=== PATIENT | male | born 1965 | race Caucasian/White ===

== ENCOUNTER 2017-11-17 02:54 | Inpatient (IN) | payer OTHER ==
[2017-11-17] VITALS (7 sets, daily range): BP systolic 129–157; BP diastolic 78–103
[~2017-11-17] VITALS: Ht 177.8 cm; Wt 68.0 kg
[~2017-11-17 02:54] MED LIST: PROLASTIN C1000 MG IV; SPIRIVA INH
[2017-11-17] MEDS ORDERED: ANORO ELLIPTA1 EACH INH (03:12)
[2017-11-17 03:45] LABS: HEMATOCRIT 44.2 % (42.0-52.0); HEMOGLOBIN 14.9 gm/dL (14.0-18.0); MCH 30.7 pg (26.0-34.0); MCHC 33.7 g/dL (28.0-37.0); MCV 91.1 fL (80.0-100.0); MPV 6.8 fl. (7.2-11.1); NUCLEATED RBCS 0 /100WBC; PLATELET COUNT* 252 thou/uL (150-400); RBC 4.85 mil/uL (4.50-6.00); RDW-CV 13.4 % (10.5-14.5); WBC 10.5 thou/uL (4.0-11.0)
[2017-11-17 03:53] LABS: ANION GAP 13 mmol/L (7-16); BUN 8 mg/dL (7-18); CALCIUM 8.3 mg/dL (8.5-10.1); CHLORIDE 99 mmol/L (98-107); CO2 25 mmol/L (21-32); CREATININE 0.9 mg/dL (0.6-1.3); GLUCOSE 119 mg/dL (70-99); POTASSIUM 3.6 mmol/L (3.5-5.1); SODIUM 137 mmol/L (136-145)
[2017-11-17 03:54] LABS: APTT 29.7 Seconds (25.0-31.3); PROTIME 9.8 Seconds (9.20-11.50)
[2017-11-17 04:06] LABS: ALBUMIN 3.8 g/dL (3.4-5.0); ALKALINE PHOSPHATASE 77 U/L (46-116); SGOT 38 U/L (15-37); SGPT 41 U/L (30-65); TOTAL BILIRUBIN 0.2 mg/dL (<0.1-1.0); TOTAL PROTEIN 7.1 g/dL (6.4-8.2); TROPONIN-I LEVEL <0.06 ng/mL (<0.06)
[2017-11-17 04:48] LABS: INFLUENZA A ANTIGEN None Detected (None Detect)
[2017-11-17 05:32] LABS: ABSOLUTE LYMPHOCYTES 0.6 thou/uL (0.8-5.3); ABSOLUTE MONOCYTES 0.7 thou/uL (0.0-1.2); ABSOLUTE NEUTROPHILS 9.1 thou/uL (1.6-8.1); ANISOCYTOSIS 1+; PLATELET ESTIMATE ADEQUATE; POIKILOCYTOSIS 1+
--- NOTE | 2017-11-17 06:17 | NUR ---
PT ADMITTED WITH INFLUENZA B AND HYPOXIA. PT IS ON 2L PER NC WITH [place] SATS AT THIS TIME. UPPON ARRIVAL TO ED PT HAD SATS IN THE 80'S ON ROOM AIR. PT IS ON TELE MONITOR, SINUS TACH IN LOW 100'S. PT VITALS STABLE, AFEBRILE AT THIS TIME. PT REPORTS NOT FEELING GOOD WITH FEVER SINCE FRIDAY. PT GIVEN PO TYLENOL, 1 LITER BOLUS, SOLUMEDROL, TAMIFLU, ZITHRO, ROCEPHIN, AND BREATHING TX IN ED. SEPSIS SCREENING NEGATIVE AT THIS TIME. PT IS ALERT AND ORIENTED FROM HOME. PT IS UP AD JUS WITH STEADY GAIT. PT HAS IV FLUIDS INFUSING. SEE ASSESSMENT AND VITALS FOR OTHER DETAILS. CALL LIGHT WITHIN REACH, WILL CONTINUE PLAN OF CARE
--- NOTE | 2017-11-17 10:57 | EKG ---
[place] [address] ELECTROCARDIOGRAM REPORT Name: CASE,ZEESHAN GAR Room: [address] ADM IN .R.#: [id number] Admission: 11/17/17 Attend Phys: Cabrera Feldman MD Discharge: Date of : 67 Report #: [id number] THIS REPORT FOR: //name// 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: ZEHRA : [id number] Requested By: Yehuda Sharp Order Number: [id number] MD: Rangel Wiley Measurements Intervals [place] Rate: 111 P: 91 [place]: 153 QRS: 118 QRSD: 106 T: 68 QT: 313 QTc: 426 Interpretive Statements Sinus tachycardia Right atrial enlargement Right axis deviation Probable septal infarct, old No previous ECG available for comparison Electronically Signed On 11-17-2017 10:57:42 ELECTRICAL MANAGER by Rangel Wiley [email or web address] <ELECTRONICALLY SIGNED> By: Rangel Wiley MD, [facility] 11/17/17 1057 7 7 Rangel Wiley MD, FACC /EPI
--- NOTE | 2017-11-17 16:37 | NUR ---
ASSUMED CARE THIS AM. A/O X 4, DISCOMFORT MANAGED WITH ORAL MEDICATION. JORDAN IVF WELL, CURRENTLY SL. UP AD JUS, STEADY GAIT, CONTINENT OF BOWEL/BLADDER. CONT ISOLATION FOR INFLUENZA B, NO DISTRESS, CALL LIGHT IN REACH, CONT POC.
[2017-11-17] MEDS ORDERED: SINGULAIR 10 MG10 M1 PO (20:44)
[2017-11-17] MEDS ORDERED: PROAIR HFA8.5 GM INH (20:45)
[2017-11-17 20:54] LABS: URINE BILIRUBIN NEGATIVE (Negative); URINE BLOOD NEGATIVE (Negative); URINE CLARITY CLEAR; URINE COLOR YELLOW; URINE GLUCOSE-RANDOM TRACE (Negative); URINE KETONES NEGATIVE (Negative); URINE LEUKOCYTES-REFLEX NEGATIVE (Negative); URINE NITRITE-REFLEX NEGATIVE (Negative); URINE PROTEIN NEGATIVE (Negative); URINE UROBILINOGEN 0.2 E.U./dl (0.2-1.0)
[2017-11-18 04:04] LABS: HEMATOCRIT 42.2 % (42.0-52.0); MCH 30.2 pg (26.0-34.0); MCV 91.4 fL (80.0-100.0); MPV 6.8 fl. (7.2-11.1); RBC 4.62 mil/uL (4.50-6.00); RDW-CV 13.8 % (10.5-14.5); WBC 11.6 thou/uL (4.0-11.0)
[2017-11-18 04:22] LABS: CALCIUM 8.5 mg/dL (8.5-10.1); CREATININE 0.9 mg/dL (0.6-1.3); MAGNESIUM 2.1 mg/dL (1.8-2.4); POTASSIUM 4.1 mmol/L (3.5-5.1)
--- NOTE | 2017-11-18 07:02 | NUR ---
PT SLEPT ON AND OFF OVERNIGHT. UP AD JUS IN ROOM. SL IV, SOLUMEDROL GIVEN ORDERED. TAMIFLU GIVEN. AM LABS DRAWN. RT TX GIVEN. TELE ST. PT DENIES PAIN OR PROBLEMS. REMAINS ON DROPLET ISOLATION FOR +FLU. TO HAVE CXR TODAY. O2 2L NC.
[2017-11-18 09:15] VITALS: BP 145/87
[2017-11-18] MEDS ORDERED: OSELB75 PO (09:45)
[2017-11-18] MEDS ORDERED: PREDNISONE 10 M10 MG PO (09:45)
[2017-11-18 10:43] VITALS: BP 145/87
--- NOTE | 2017-11-18 11:31 | NUR ---
PATIENT AMBULATED IN HALLWAY WITH THIS NURSE. PATIENT 02 STARTED AT 94% RA AND DROPPED TO 90% RA. HR ELEVATED UP TO 145 AT ONE POINT DURING AMBULATION. HR CAME BACK DOWN TO 120'S AND 1 TEENS WHILE PATIENT WAS SITTING IN BED AFTER WALK. PATIENT STATED HE FELT LIKE HE WAS READY TO GO HOME. DR. MCCORMACK NOTIFIED AND STILL OK FOR PATIENT TO DISCHARGE. 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 PATIENT WAS OFF 02 WHEN THIS NURSE ASSESSED PATIENT THIS AM, WAS 90% RESTING IN BED, PATIENT HAS HAD 02 ON AND OFF THIS SHIFT. IV DC'D. SCHED MEDS GIVEN ORDERED THIS AM. PATIENT DISCHARGED TO HOME WITH BROTHER IN LAW AT THIS TIME. PATIENT TAKEN OUT VIA WHEELCHAIR. VERBALIZED UNDERSTANDING OF PAPERWORK AND SCRIPT.
== END 2017-11-18 11:36 | disposition home or self-care (01) | DRG 871 ==
LOC: M.ERS 02:54 → M.TBA-ER 04:51 → M.3W 04:51
PROVIDERS: Emergency Medicine Emergency Medical Services; Internal Medicine; ADMIT Internal Medicine
DX: A41.89 Other specified sepsis (principal); J96.01 Acute respiratory failure with hypoxia; J18.9 Pneumonia, unspecified organism; J11.1 Influenza due to unidentified influenza virus with other respiratory manifestations; J44.9 Chronic obstructive pulmonary disease, unspecified; Z79.899 Other long term (current) drug therapy